=== PATIENT | female | born 1945 | race Caucasian/White ===

== ENCOUNTER → 2016-09-08 | Outpatient (CLI) | payer MEDICARE, BC ==
[~2016-09-08] MED LIST: ADULT LOW DOSE81 MG PO; ANUSOL HC CREAM30 GM TP; CALCIUM + D SO1 EACH PO; CITRACAL + D E1 EACH PO; ERGOCALCIFER50000 IU PO; FELDENE20 M1 PO; FISH OIL CONCEN1 SG2 PO; FLOVENT DI50 MCG/Act IH; FLUTICASON0.05 MG/AC NS; FOSAMAX 70MG TA70 MG PO; NORCO 325 MG-7.1 TA1 PO; NORVASC10 M1 PO; PHARMASSURE FO0.4 MG PO; PREMARIN 0.3MG0.3 MG PO; PROBIOTIC1 EAC1 PO; PROTONIX 40MG T40 MG PO; VOLTAREN-XR100 M1 PO
== END ==
LOC: LAB 09:07
DX: E11.9 Type 2 diabetes mellitus without complications (principal); E78.2 Mixed hyperlipidemia; I10 Essential (primary) hypertension

== ENCOUNTER → 2016-10-31 | Outpatient (CLI) | payer MEDICARE, BC ==
[2016-10-31 14:00] VITALS: BP 126/76
== END ==
LOC: AMSURD 13:32
DX: Z01.818 Encounter for other preprocedural examination (principal); M48.06 Spinal stenosis, lumbar region; Z51.81 Encounter for therapeutic drug level monitoring

== ENCOUNTER → 2017-03-08 | Outpatient (CLI) | payer MEDICARE, BC ==
[2016-10-31 14:00] VITALS: BP 126/76
== END ==
LOC: LAB 08:34
DX: I10 Essential (primary) hypertension (principal); E78.5 Hyperlipidemia, unspecified; E11.9 Type 2 diabetes mellitus without complications; Z12.11 Encounter for screening for malignant neoplasm of colon; M85.89 Other specified disorders of bone density and structure, multiple sites

== ENCOUNTER → 2017-03-13 | Outpatient (CLI) | payer MEDICARE, BC ==
[2016-10-31 14:00] VITALS: BP 126/76
== END ==
LOC: LAB 08:35
DX: E11.9 Type 2 diabetes mellitus without complications (principal); Z12.11 Encounter for screening for malignant neoplasm of colon; M25.552 Pain in left hip

== ENCOUNTER → 2017-03-15 | Outpatient (CLI) | payer MEDICARE, BC ==
[2016-10-31 14:00] VITALS: BP 126/76
== END ==
LOC: RAD 06:47
DX: M70.62 Trochanteric bursitis, left hip (principal)

== ENCOUNTER → 2017-03-23 | Outpatient (CLI) | payer MEDICARE, BC ==
[2016-10-31 14:00] VITALS: BP 126/76
== END ==
LOC: MAMMO 08:09 → LAB 13:53 → MAMMO 13:55
DX: Z12.31 Encounter for screening mammogram for malignant neoplasm of breast (principal)
CPT/HCPCS: G0202

== ENCOUNTER → 2017-04-20 | Outpatient (CLI) | payer MEDICARE, BC ==
[2016-10-31 14:00] VITALS: BP 126/76
[2017-04-20 17:22] LABS: D-DIMER 0.26 mg/L FEU (0.15-0.50)
== END ==
LOC: LAB 16:34
PROVIDERS: Physician Assistant
DX: M79.662 Pain in left lower leg (principal)

== ENCOUNTER → 2017-05-29 | Outpatient (CLI) | payer MEDICARE, BC ==
[2016-10-31 14:00] VITALS: BP 126/76
== END ==
LOC: RAD 03-13 10:17
DX: M54.5 Low back pain (principal); Z13.89 Encounter for screening for other disorder; M51.26 Other intervertebral disc displacement, lumbar region; M51.27 Other intervertebral disc displacement, lumbosacral region; G96.19 Other disorders of meninges, not elsewhere classified
CPT/HCPCS: A9585

== ENCOUNTER → 2017-09-04 | Outpatient (CLI) | payer MEDICARE, BC ==
[2016-10-31 14:00] VITALS: BP 126/76
[2017-09-04 09:16] LABS: EOS # 0.1 (0.04-0.40); EOS % 1.3 % (1.0-5.0); HEMATOCRIT 45.7 % (37.0-47.0); MEAN CELL VOLUME 91 fl (78-100); MEAN CORPUSCULAR HEMOGLOBIN 30 pg (27-31); MEAN CORPUSCULAR HGB CONC 33 g/dL (33-37); MONO # 0.4 (0.20-0.80); NEU # 2.1 (1.40-6.50); PLATELET COUNT 279 K/mm3 (130-400); RED BLOOD COUNT 5.02 M/mm3 (4.10-5.30); RED CELL DISTRIBUTION WIDTH 13.4 % (11.5-14.5); WHITE BLOOD COUNT 4.6 K/mm3 (4.8-10.8)
[2017-09-04 09:33] LABS: ALBUMIN 4.1 g/dL (3.5-5.0); BUN/CREATININE RATIO 17.9 (6.0-26.0); CALCIUM 9.8 mg/dL (8.4-10.2); TOTAL BILIRUBIN 0.6 mg/dL (0.2-1.3); TOTAL PROTEIN 7.5 g/dL (6.3-8.2)
== END ==
LOC: LAB 09:05
PROVIDERS: Internal Medicine
DX: E11.9 Type 2 diabetes mellitus without complications (principal); E78.2 Mixed hyperlipidemia; I10 Essential (primary) hypertension

== ENCOUNTER → 2017-09-26 | Outpatient (CLI) | payer MEDICARE, BC ==
[2016-10-31 14:00] VITALS: BP 126/76
[2017-09-26 08:54] LABS: BUN/CREATININE RATIO 19.4 (6.0-26.0)
== END ==
LOC: RAD 08:01
PROVIDERS: Internal Medicine
DX: R22.42 Localized swelling, mass and lump, left lower limb (principal); M19.90 Unspecified osteoarthritis, unspecified site

== ENCOUNTER → 2018-03-12 | Outpatient (CLI) | payer MEDICARE, BC ==
[2016-10-31 14:00] VITALS: BP 126/76
== END ==
LOC: LAB 09:15
DX: Z12.11 Encounter for screening for malignant neoplasm of colon (principal); E11.9 Type 2 diabetes mellitus without complications; I10 Essential (primary) hypertension; M25.562 Pain in left knee; K90.9 Intestinal malabsorption, unspecified

== ENCOUNTER → 2018-03-15 | Outpatient (CLI) | payer MEDICARE, BC ==
[~2018-03-15] VITALS: Ht 162.6 cm; Wt 90.0 kg
[~2018-03-15] MED LIST changes: +ASPIR LOW81 MG PO
[2018-03-15 09:32] VITALS: BP 140/68
== END ==
LOC: AMSURD 09:07
DX: I49.3 Ventricular premature depolarization (principal)

== ENCOUNTER → 2018-03-27 | Outpatient (CLI) | payer MEDICARE, BC ==
[2018-03-15 09:32] VITALS: BP 140/68
== END ==
LOC: RAD 08:26 → MAMMO 08:30 → RAD 08:30
DX: Z13.820 Encounter for screening for osteoporosis (principal); M85.80 Other specified disorders of bone density and structure, unspecified site

== ENCOUNTER → 2018-03-27 | Outpatient (CLI) | payer MEDICARE, BC ==
[2018-03-15 09:32] VITALS: BP 140/68
== END ==
LOC: MAMMO 08:26
DX: Z12.31 Encounter for screening mammogram for malignant neoplasm of breast (principal)

== ENCOUNTER → 2018-09-06 | Outpatient (CLI) | payer MEDICARE, BC ==
[2018-03-15 09:32] VITALS: BP 140/68
[2018-09-06 09:42] LABS: EOS # 0.1 (0.04-0.40); EOS % 2.6 % (1.0-5.0); HEMATOCRIT 44.8 % (37.0-47.0); HEMOGLOBIN 14.8 g/dL (12.5-16.0); LYMPH# 2.2 (1.50-4.00); MEAN CELL VOLUME 92 fl (78-100); MEAN CORPUSCULAR HEMOGLOBIN 30 pg (27-31); MEAN CORPUSCULAR HGB CONC 33 g/dL (33-37); MONO # 0.4 (0.20-0.80); NEU # 1.9 (1.40-6.50); PLATELET COUNT 268 K/mm3 (130-400); RED BLOOD COUNT 4.87 M/mm3 (4.10-5.30); RED CELL DISTRIBUTION WIDTH 13.3 % (11.5-14.5); WHITE BLOOD COUNT 4.7 K/mm3 (4.8-10.8)
[2018-09-06 09:43] LABS: ALBUMIN 4.5 g/dL (3.5-5.0); TOTAL BILIRUBIN 0.7 mg/dL (0.2-1.3); TOTAL PROTEIN 7.6 g/dL (6.3-8.2)
== END ==
LOC: LAB 09:02
PROVIDERS: Internal Medicine
DX: E11.9 Type 2 diabetes mellitus without complications (principal); I10 Essential (primary) hypertension; K90.9 Intestinal malabsorption, unspecified; M25.562 Pain in left knee

== ENCOUNTER → 2018-09-17 | Outpatient (CLI) | payer MEDICARE, BC ==
[2018-03-15 09:32] VITALS: BP 140/68
== END ==
LOC: RAD 08:58
DX: M19.90 Unspecified osteoarthritis, unspecified site (principal); M85.80 Other specified disorders of bone density and structure, unspecified site; M25.562 Pain in left knee; M25.561 Pain in right knee

== ENCOUNTER → 2019-03-12 | Outpatient (CLI) | payer MEDICARE, BC ==
[2018-03-15 09:32] VITALS: BP 140/68
[2019-03-12 09:40] LABS: EOS # 0.2 (0.04-0.40); EOS % 2.9 % (1.0-5.0); HEMATOCRIT 44.1 % (37.0-47.0); HEMOGLOBIN 14.6 g/dL (12.5-16.0); LYMPH# 2.4 (1.50-4.00); MEAN CELL VOLUME 92 fl (78-100); MEAN CORPUSCULAR HEMOGLOBIN 31 pg (27-31); MEAN CORPUSCULAR HGB CONC 33 g/dL (33-37); MEAN PLATELET VOLUME 8.9 fl (7.4-10.4); MONO # 0.3 (0.20-0.80); NEU # 2.3 (1.40-6.50); PLATELET COUNT 267 K/mm3 (130-400); RED BLOOD COUNT 4.79 M/mm3 (4.10-5.30); RED CELL DISTRIBUTION WIDTH 13.3 % (11.5-14.5); WHITE BLOOD COUNT 5.2 K/mm3 (4.8-10.8)
[2019-03-12 09:43] LABS: ALBUMIN 4.1 g/dL (3.4-4.8)
[2019-03-12 09:44] LABS: CALCIUM 10.1 mg/dL (8.3-10.5)
[2019-03-12 09:45] LABS: TOTAL PROTEIN 7.4 g/dL (6.2-8.1)
[2019-03-12 09:46] LABS: PH-URINE 5.5 (5.0 - 8.0); URINE APPEARANCE CLEAR; URINE BILIRUBIN NEGATIVE (NEGATIVE); URINE BLOOD TRACE (NEGATIVE); URINE COLOR YELLOW; URINE GLUCOSE NEGATIVE (NEGATIVE); URINE KETONE NEGATIVE (NEGATIVE); URINE LEUKOCYTE ESTERASE NEGATIVE (NEGATIVE); URINE MUCUS PRESENT (NOT PRESENT); URINE NITRATE NEGATIVE (NEGATIVE); URINE PROTEIN(semi-quant) TRACE mg/dL (NEGATIVE); URINE UROBILINOGEN NORMAL (NORMAL)
[2019-03-12 10:41] LABS: ERYTHROCYTE SEDIMENTATION RATE 6 mm/hr (0-30)
== END ==
LOC: LAB 09:21
PROVIDERS: Internal Medicine
DX: Z12.11 Encounter for screening for malignant neoplasm of colon (principal); E11.9 Type 2 diabetes mellitus without complications; I10 Essential (primary) hypertension; K90.9 Intestinal malabsorption, unspecified; M25.562 Pain in left knee

== ENCOUNTER → 2019-03-18 | Outpatient (CLI) | payer MEDICARE, BC ==
[~2019-03-18] VITALS: Ht 162.6 cm; Wt 90.0 kg
[~2019-03-18] MED LIST changes: +MELOXICAM15 MG PO; +PROAIR HFA0.09 MG/AC IH; +TOPICORT60 G2 TP
[2019-03-18 10:14] VITALS: BP 137/81
== END ==
LOC: AMSURD 08:45 → LAB 08:45
DX: Z12.11 Encounter for screening for malignant neoplasm of colon (principal); E11.9 Type 2 diabetes mellitus without complications; I49.3 Ventricular premature depolarization; I10 Essential (primary) hypertension; M25.562 Pain in left knee

== ENCOUNTER → 2019-04-04 | Outpatient (CLI) | payer MEDICARE, BC ==
[2019-03-18 10:14] VITALS: BP 137/81
== END ==
LOC: MAMMO 09:03
DX: Z12.31 Encounter for screening mammogram for malignant neoplasm of breast (principal)

== ENCOUNTER → 2019-12-23 | Outpatient (CLI) | payer MEDICARE, BC ==
[2019-03-18 10:14] VITALS: BP 137/81
== END ==
LOC: RAD 10:50
DX: M48.061 Spinal stenosis, lumbar region without neurogenic claudication (principal); M43.17 Spondylolisthesis, lumbosacral region; M54.16 Radiculopathy, lumbar region; Z98.890 Other specified postprocedural states

== ENCOUNTER → 2020-03-13 | Outpatient (CLI) | payer MEDICARE, BC ==
[2019-03-18 10:14] VITALS: BP 137/81
[2020-03-13 10:17] LABS: BASO # 0.1 (0.02-0.10); EOS # 0.2 (0.04-0.40); EOS % 3.2 % (1.0-5.0); HEMATOCRIT 44.3 % (37.0-47.0); HEMOGLOBIN 14.6 g/dL (12.5-16.0); LYMPH# 1.9 (1.50-4.00); MEAN CELL VOLUME 92 fl (78-100); MEAN CORPUSCULAR HEMOGLOBIN 30 pg (27-31); MEAN CORPUSCULAR HGB CONC 33 g/dL (33-37); MEAN PLATELET VOLUME 8.7 fl (7.4-10.4); MONO # 0.4 (0.20-0.80); NEU # 2.3 (1.40-6.50); PLATELET COUNT 277 K/mm3 (130-400); RED BLOOD COUNT 4.84 M/mm3 (4.10-5.30); RED CELL DISTRIBUTION WIDTH 13.1 % (11.5-14.5); WHITE BLOOD COUNT 4.8 K/mm3 (4.8-10.8)
[2020-03-13 10:30] LABS: ALBUMIN 4.3 g/dL (3.4-4.8)
[2020-03-13 10:31] LABS: CALCIUM 9.9 mg/dL (8.3-10.5)
[2020-03-13 10:33] LABS: TOTAL PROTEIN 7.4 g/dL (6.2-8.1)
[2020-03-13 10:35] LABS: TOTAL BILIRUBIN 0.6 mg/dL (0.2-1.2)
[2020-03-13 11:24] LABS: ERYTHROCYTE SEDIMENTATION RATE 3 mm/hr (0-30)
[2020-03-13 11:37] LABS: URINE APPEARANCE CLEAR; URINE BILIRUBIN NEGATIVE (NEGATIVE); URINE BLOOD NEGATIVE (NEGATIVE); URINE COLOR YELLOW; URINE GLUCOSE NEGATIVE (NEGATIVE); URINE KETONE NEGATIVE (NEGATIVE); URINE LEUKOCYTE ESTERASE NEGATIVE (NEGATIVE); URINE NITRATE NEGATIVE (NEGATIVE); URINE PROTEIN(semi-quant) TRACE mg/dL (NEGATIVE); URINE UROBILINOGEN NORMAL (NORMAL); URINE WBC 0-1 /hpf (0-3)
[2020-03-13 11:38] LABS: URINE MUCUS PRESENT (NOT PRESENT)
== END ==
LOC: LAB 10:03
PROVIDERS: Internal Medicine
DX: Z12.11 Encounter for screening for malignant neoplasm of colon (principal); E11.9 Type 2 diabetes mellitus without complications; K90.9 Intestinal malabsorption, unspecified; I10 Essential (primary) hypertension; M25.562 Pain in left knee

== ENCOUNTER → 2020-03-20 | Outpatient (CLI) | payer MEDICARE, BC ==
[2019-03-18 10:14] VITALS: BP 137/81
== END ==
LOC: LAB 11:06
DX: Z12.11 Encounter for screening for malignant neoplasm of colon (principal); E11.9 Type 2 diabetes mellitus without complications; I10 Essential (primary) hypertension; M25.562 Pain in left knee

== ENCOUNTER → 2020-03-23 | Outpatient (CLI) | payer MEDICARE, BC ==
[2019-03-18 10:14] VITALS: BP 137/81
== END ==
LOC: LAB 09:55
DX: I10 Essential (primary) hypertension (principal); R20.2 Paresthesia of skin

== ENCOUNTER → 2020-04-08 | Outpatient (CLI) | payer MEDICARE, BC ==
[2019-03-18 10:14] VITALS: BP 137/81
== END ==
LOC: MAMMO 04-07 10:00 → RAD 09:49 → MAMMO 10:00
DX: Z13.820 Encounter for screening for osteoporosis (principal); M85.89 Other specified disorders of bone density and structure, multiple sites
CPT/HCPCS: G0399

== ENCOUNTER → 2020-04-08 | Outpatient (CLI) | payer MEDICARE, BC ==
[2019-03-18 10:14] VITALS: BP 137/81
== END ==
LOC: MAMMO 09:49 → RAD 09:49 → MAMMO 10:45
DX: Z12.31 Encounter for screening mammogram for malignant neoplasm of breast (principal)

== ENCOUNTER → 2020-04-24 | Outpatient (CLI) | payer MEDICARE, BC ==
[2019-03-18 10:14] VITALS: BP 137/81
[2020-04-24 11:19] LABS: ALBUMIN 4.2 g/dL (3.4-4.8)
[2020-04-24 11:22] LABS: TOTAL PROTEIN 7.6 g/dL (6.2-8.1)
[2020-04-24 11:24] LABS: TOTAL BILIRUBIN 0.6 mg/dL (0.2-1.2)
[2020-04-24 11:27] LABS: DIRECT BILIRUBIN 0.2 mg/dL (0.0-0.5)
== END ==
LOC: LAB 10:45
PROVIDERS: Internal Medicine
DX: I10 Essential (primary) hypertension (principal); B35.1 Tinea unguium

== ENCOUNTER → 2020-05-07 | Outpatient (CLI) | payer MEDICARE, BC ==
[2019-03-18 10:14] VITALS: BP 137/81
== END ==
LOC: LAB 09:18
DX: J02.9 Acute pharyngitis, unspecified (principal); R09.81 Nasal congestion; Z20.828 Contact with and (suspected) exposure to other viral communicable diseases

== ENCOUNTER → 2020-05-29 | Outpatient (CLI) | payer MEDICARE, BC ==
[2019-03-18 10:14] VITALS: BP 137/81
[2020-05-29 13:37] LABS: ALBUMIN 4.4 g/dL (3.4-4.8)
[2020-05-29 13:39] LABS: TOTAL PROTEIN 7.3 g/dL (6.2-8.1)
[2020-05-29 13:41] LABS: TOTAL BILIRUBIN 0.5 mg/dL (0.2-1.2)
[2020-05-29 13:45] LABS: DIRECT BILIRUBIN 0.2 mg/dL (0.0-0.5)
== END ==
LOC: LAB 13:11
PROVIDERS: Internal Medicine
DX: B35.1 Tinea unguium (principal)

== ENCOUNTER → 2020-08-04 | Outpatient (CLI) | payer MEDICARE, BC ==
[2019-03-18 10:14] VITALS: BP 137/81
== END ==
LOC: RAD 10:06
DX: M25.561 Pain in right knee (principal)

== ENCOUNTER → 2020-09-08 | Outpatient (CLI) | payer MEDICARE, BC ==
[2019-03-18 10:14] VITALS: BP 137/81
[~2020-09-08] MED LIST changes: +VITAMIN D21250 MCG PO
[2020-09-08 10:00] LABS: ALBUMIN 4.2 g/dL (3.4-4.8)
[2020-09-08 10:03] LABS: TOTAL PROTEIN 7.1 g/dL (6.2-8.1)
[2020-09-08 10:05] LABS: TOTAL BILIRUBIN 0.6 mg/dL (0.2-1.2)
[2020-09-08 10:08] LABS: DIRECT BILIRUBIN 0.2 mg/dL (0.0-0.5)
== END ==
LOC: LAB 09:35
PROVIDERS: Internal Medicine
DX: E11.9 Type 2 diabetes mellitus without complications (principal); B35.1 Tinea unguium

== ENCOUNTER 2021-02-10 17:20 | Emergency (ER) | payer MEDICARE, BC ==
[~2021-02-10] VITALS: Ht 162.6 cm; Wt 91.8 kg
[~2021-02-10 17:20] MED LIST changes: -VITAMIN D21250 MCG PO
[2021-02-10 18:14] LABS: BASO # 0.02 (0.02-0.10); EOS # 0.06 (0.04-0.40); EOS % 0.9 % (1.0-5.0); HEMATOCRIT 44.3 % (37.0-47.0); HEMOGLOBIN 14.6 g/dL (12.5-16.0); LYMPH# 1.31 (1.50-4.00); MEAN CELL VOLUME 94 fl (78-100); MEAN CORPUSCULAR HEMOGLOBIN 31 pg (27-31); MEAN CORPUSCULAR HGB CONC 33 g/dL (33-37); MEAN PLATELET VOLUME 8.8 fl (7.4-10.4); MONO # 0.76 (0.20-0.80); NEU # 4.51 (1.40-6.50); PLATELET COUNT 180 K/mm3 (130-400); RED BLOOD COUNT 4.74 M/mm3 (4.10-5.30); WHITE BLOOD COUNT 6.7 K/mm3 (4.8-10.8)
[2021-02-10 18:26] LABS: ALBUMIN 4.1 g/dL (3.4-4.8); SODIUM 139 mmol/L (136-145)
[2021-02-10 18:27] LABS: CALCIUM 10.1 mg/dL (8.3-10.5)
[2021-02-10 18:28] LABS: GLUCOSE 118 mg/dL (65-105); TOTAL PROTEIN 7.6 g/dL (6.2-8.1)
[2021-02-10 18:30] LABS: CARBON DIOXIDE 23 mmol/L (23-31); TOTAL BILIRUBIN 1.1 mg/dL (0.2-1.2)
[2021-02-10 18:31] LABS: D-DIMER 0.2 mg/L FEU (0.15-0.50)
[2021-02-10 18:34] LABS: AST-SGOT 42 U/L (5-34)
[2021-02-10 18:35] LABS: ALT/SGPT 54 U/L (0-55)
[2021-02-10 19:09] LABS: TROPONIN-I < 0.03 ng/mL (<0.030)
[2021-02-10 21:06] VITALS: BP 131/63
[2021-02-10] MEDS ORDERED: VITAMIN D21250 MCG PO (21:18)
== END 2021-02-10 21:06 | disposition other institution (70) ==
LOC: ED 17:20
PROVIDERS: Physician Assistant
DX: U07.1 COVID-19 (principal); J12.82 Pneumonia due to coronavirus disease 2019; R09.02 Hypoxemia; E11.9 Type 2 diabetes mellitus without complications; I10 Essential (primary) hypertension; G47.33 Obstructive sleep apnea (adult) (pediatric); E78.2 Mixed hyperlipidemia; E66.9 Obesity, unspecified; Z79.899 Other long term (current) drug therapy
CPT/HCPCS: J0456; J0696; J1100; J7050

== ENCOUNTER 2021-02-10 20:10 | Inpatient (IN) | payer MEDICARE, BC ==
[~2021-02-10] VITALS: Ht 162.5 cm; Wt 91.8 kg
[2021-02-10] MEDS ORDERED: VITAMIN D21250 MCG PO (21:18)
[2021-02-10 22:00] VITALS: BP 131/63
[2021-02-10 22:03] VITALS: BP 131/63
[2021-02-11 02:07] VITALS: BP 119/59
[2021-02-11 05:38] VITALS: BP 110/59
[2021-02-11 06:48] LABS: URINE APPEARANCE CLEAR; URINE BILIRUBIN NEGATIVE (NEGATIVE); URINE BLOOD NEGATIVE (NEGATIVE); URINE COLOR YELLOW; URINE GLUCOSE 50 mg/dL mg/dL (NEGATIVE); URINE KETONE NEGATIVE (NEGATIVE); URINE LEUKOCYTE ESTERASE NEGATIVE (NEGATIVE); URINE NITRATE NEGATIVE (NEGATIVE); URINE PROTEIN(semi-quant) NEGATIVE (NEGATIVE); URINE UROBILINOGEN NORMAL (NORMAL); URINE WBC 0-1 /hpf (0-3)
[2021-02-11 07:11] LABS: BASO # 0.01 (0.02-0.10); HEMOGLOBIN 14.2 g/dL (12.5-16.0); LYMPH# 0.92 (1.50-4.00); MEAN CELL VOLUME 94 fl (78-100); MEAN CORPUSCULAR HEMOGLOBIN 30 pg (27-31); MEAN CORPUSCULAR HGB CONC 32 g/dL (33-37); MEAN PLATELET VOLUME 8.8 fl (7.4-10.4); MONO # 0.29 (0.20-0.80); NEU # 4.23 (1.40-6.50); PLATELET COUNT 187 K/mm3 (130-400); RED BLOOD COUNT 4.68 M/mm3 (4.10-5.30); RED CELL DISTRIBUTION WIDTH 12.8 % (11.5-14.5); WHITE BLOOD COUNT 5.5 K/mm3 (4.8-10.8)
[2021-02-11 07:16] LABS: ALBUMIN 3.8 g/dL (3.4-4.8); POTASSIUM 4.5 mmol/L (3.5-5.1)
[2021-02-11 07:17] LABS: CALCIUM 9.7 mg/dL (8.3-10.5)
[2021-02-11 07:19] LABS: TOTAL PROTEIN 7.1 g/dL (6.2-8.1)
[2021-02-11 07:21] LABS: TOTAL BILIRUBIN 0.6 mg/dL (0.2-1.2)
[2021-02-11 09:21] VITALS: BP 134/61
[2021-02-11 14:10] VITALS: BP 134/61
== END 2021-02-11 14:10 | disposition short-term general hospital (02) | DRG 177 ==
LOC: MED/SURG 20:10
PROVIDERS: ADMIT Physician Assistant
DX: U07.1 COVID-19 (principal); J12.82 Pneumonia due to coronavirus disease 2019; E11.9 Type 2 diabetes mellitus without complications; G47.33 Obstructive sleep apnea (adult) (pediatric); R09.02 Hypoxemia; M48.061 Spinal stenosis, lumbar region without neurogenic claudication; M85.80 Other specified disorders of bone density and structure, unspecified site; I10 Essential (primary) hypertension; E78.2 Mixed hyperlipidemia; Z88.8 Allergy status to other drugs, medicaments and biological substances
CPT/HCPCS: J1100; J1650

== ENCOUNTER → 2021-03-22 | Outpatient (CLI) | payer MEDICARE, BC ==
[~2021-03-22] MED LIST changes: +VITAMIN D21250 MCG PO
[2021-03-22 08:22] LABS: BASO # 0.03 (0.02-0.10); EOS # 0.04 (0.04-0.40); EOS % 0.8 % (1.0-5.0); HEMATOCRIT 41.4 % (37.0-47.0); HEMOGLOBIN 13.7 g/dL (12.5-16.0); LYMPH# 2.26 (1.50-4.00); MEAN CELL VOLUME 93 fl (78-100); MEAN CORPUSCULAR HEMOGLOBIN 31 pg (27-31); MEAN CORPUSCULAR HGB CONC 33 g/dL (33-37); MEAN PLATELET VOLUME 8.7 fl (7.4-10.4); MONO # 0.47 (0.20-0.80); NEU # 2.01 (1.40-6.50); PLATELET COUNT 223 K/mm3 (130-400); RED BLOOD COUNT 4.45 M/mm3 (4.10-5.30); RED CELL DISTRIBUTION WIDTH 13.4 % (11.5-14.5); WHITE BLOOD COUNT 4.8 K/mm3 (4.8-10.8)
[2021-03-22 09:29] LABS: ERYTHROCYTE SEDIMENTATION RATE 6 mm/hr (0-30)
[2021-03-22 09:37] LABS: POTASSIUM 4.3 mmol/L (3.5-5.1)
[2021-03-22 09:38] LABS: ALBUMIN 3.6 g/dL (3.4-4.8); CALCIUM 9.7 mg/dL (8.3-10.5)
[2021-03-22 09:42] LABS: TOTAL BILIRUBIN 0.6 mg/dL (0.2-1.2)
[2021-03-22 09:47] LABS: MAGNESIUM 1.93 mg/dL (1.60-2.60)
[2021-03-22 10:01] LABS: URINE APPEARANCE CLEAR; URINE BILIRUBIN NEGATIVE (NEGATIVE); URINE BLOOD NEGATIVE (NEGATIVE); URINE COLOR YELLOW; URINE GLUCOSE NEGATIVE (NEGATIVE); URINE KETONE NEGATIVE (NEGATIVE); URINE LEUKOCYTE ESTERASE NEGATIVE (NEGATIVE); URINE MUCUS PRESENT (NOT PRESENT); URINE NITRATE NEGATIVE (NEGATIVE); URINE PROTEIN(semi-quant) NEGATIVE (NEGATIVE); URINE UROBILINOGEN NORMAL (NORMAL); URINE WBC 0-1 /hpf (0-3)
[2021-03-22 23:40] LABS: CREATININE OTHER SOURCE 37 mg/dL (())
== END ==
LOC: LAB 08:02
PROVIDERS: Internal Medicine
DX: E11.9 Type 2 diabetes mellitus without complications (principal); I10 Essential (primary) hypertension; E78.2 Mixed hyperlipidemia; K90.9 Intestinal malabsorption, unspecified

== ENCOUNTER → 2021-04-21 | Outpatient (CLI) | payer MEDICARE, BC | LOC: MAMMO 11:33 | DX: Z12.31 Encounter for screening mammogram for malignant neoplasm of breast (principal) ==

== ENCOUNTER → 2021-04-21 | Outpatient (CLI) | payer MEDICARE, BC ==
[2021-04-21 13:16] LABS: POTASSIUM 4.3 mmol/L (3.5-5.1)
[2021-04-21 13:17] LABS: CALCIUM 10.3 mg/dL (8.3-10.5)
[2021-04-21 13:18] LABS: TOTAL PROTEIN 7.4 g/dL (6.2-8.1)
[2021-04-21 13:20] LABS: TOTAL BILIRUBIN 0.7 mg/dL (0.2-1.2)
== END ==
LOC: LAB 11:35
PROVIDERS: Internal Medicine
DX: E78.2 Mixed hyperlipidemia (principal)

== ENCOUNTER → 2021-05-24 | Outpatient (CLI) | payer MEDICARE, BC ==
[2021-05-24 12:04] LABS: ALBUMIN 4.1 g/dL (3.4-4.8)
[2021-05-24 12:06] LABS: CALCIUM 10.1 mg/dL (8.3-10.5)
[2021-05-24 12:07] LABS: TOTAL PROTEIN 7.5 g/dL (6.2-8.1)
[2021-05-24 12:09] LABS: TOTAL BILIRUBIN 0.6 mg/dL (0.2-1.2)
== END ==
LOC: LAB 11:41
PROVIDERS: Internal Medicine
DX: E78.2 Mixed hyperlipidemia (principal)

== ENCOUNTER → 2021-06-23 | Outpatient (CLI) | payer MEDICARE, BC | LOC: LAB 08:21 | DX: E11.9 Type 2 diabetes mellitus without complications (principal) ==

== ENCOUNTER → 2021-10-07 | Outpatient (CLI) | payer MEDICARE, BC ==
[2021-10-07 09:12] LABS: ALBUMIN 4.1 g/dL (3.4-4.8); POTASSIUM 4.9 mmol/L (3.5-5.1)
[2021-10-07 09:13] LABS: CALCIUM 10.4 mg/dL (8.3-10.5)
[2021-10-07 09:17] LABS: TOTAL BILIRUBIN 1.6 mg/dL (0.2-1.2)
== END ==
LOC: LAB 08:26
PROVIDERS: Internal Medicine
DX: E11.9 Type 2 diabetes mellitus without complications (principal); E78.2 Mixed hyperlipidemia; E53.8 Deficiency of other specified B group vitamins

== ENCOUNTER → 2021-12-02 | Outpatient (CLI) | payer MEDICARE, BC ==
[2021-12-02 09:30] LABS: BASO # 0.03 K/mm3 (0.02-0.10); EOS # 0.12 K/mm3 (0.04-0.40); EOS % 2.2 % (1.0-5.0); HEMATOCRIT 43.3 % (37.0-47.0); HEMOGLOBIN 14.1 g/dL (12.5-16.0); MEAN CELL VOLUME 92 fl (78-100); MEAN CORPUSCULAR HEMOGLOBIN 30 pg (27-31); MEAN CORPUSCULAR HGB CONC 33 g/dL (33-37); MEAN PLATELET VOLUME 8.9 fl (7.4-10.4); MONO # 0.36 K/mm3 (0.20-0.80); NEU # 2.66 K/mm3 (1.40-6.50); PLATELET COUNT 212 K/mm3 (130-400); RED BLOOD COUNT 4.69 M/mm3 (4.10-5.30); RED CELL DISTRIBUTION WIDTH 12.9 % (11.5-14.5); WHITE BLOOD COUNT 5.4 K/mm3 (4.8-10.8)
[2021-12-02 09:55] LABS: ALBUMIN 4.1 g/dL (3.4-4.8); POTASSIUM 4.3 mmol/L (3.5-5.1)
[2021-12-02 09:56] LABS: CALCIUM 10.1 mg/dL (8.3-10.5)
[2021-12-02 09:58] LABS: TOTAL PROTEIN 6.8 g/dL (6.2-8.1)
[2021-12-02 10:04] LABS: MAGNESIUM 2.04 mg/dL (1.60-2.60)
[2021-12-02 10:18] LABS: URINE APPEARANCE CLEAR; URINE BILIRUBIN NEGATIVE (NEGATIVE); URINE BLOOD TRACE (NEGATIVE); URINE COLOR LT YELLOW; URINE GLUCOSE NEGATIVE (NEGATIVE); URINE KETONE NEGATIVE (NEGATIVE); URINE LEUKOCYTE ESTERASE TRACE (NEGATIVE); URINE NITRATE NEGATIVE (NEGATIVE); URINE PROTEIN(semi-quant) NEGATIVE (NEGATIVE); URINE UROBILINOGEN NORMAL (NORMAL)
== END ==
LOC: LAB 09:03
PROVIDERS: Internal Medicine
DX: Z01.818 Encounter for other preprocedural examination (principal); E11.9 Type 2 diabetes mellitus without complications

== ENCOUNTER → 2022-01-31 | Outpatient (CLI) | payer MEDICARE, BC ==
[2022-01-31 14:46] LABS: BASO # 0.04 K/mm3 (0.02-0.10); EOS # 0.14 K/mm3 (0.04-0.40); EOS % 2.2 % (1.0-5.0); HEMATOCRIT 44.7 % (37.0-47.0); HEMOGLOBIN 14.4 g/dL (12.5-16.0); LYMPH# 2.67 K/mm3 (1.50-4.00); MEAN CELL VOLUME 93 fl (78-100); MEAN CORPUSCULAR HEMOGLOBIN 30 pg (27-31); MEAN CORPUSCULAR HGB CONC 32 g/dL (33-37); MEAN PLATELET VOLUME 8.9 fl (7.4-10.4); MONO # 0.42 K/mm3 (0.20-0.80); NEU # 3.14 K/mm3 (1.40-6.50); PLATELET COUNT 223 K/mm3 (130-400); RED BLOOD COUNT 4.81 M/mm3 (4.10-5.30); WHITE BLOOD COUNT 6.4 K/mm3 (4.8-10.8)
[2022-01-31 14:56] LABS: POTASSIUM 4.2 mmol/L (3.5-5.1)
[2022-01-31 14:57] LABS: ALBUMIN 4.3 g/dL (3.4-4.8)
[2022-01-31 14:58] LABS: CALCIUM 10.3 mg/dL (8.3-10.5)
[2022-01-31 15:00] LABS: TOTAL PROTEIN 7.3 g/dL (6.2-8.1)
[2022-01-31 15:01] LABS: TOTAL BILIRUBIN 0.9 mg/dL (0.2-1.2)
[2022-01-31 15:05] LABS: DIRECT BILIRUBIN 0.4 mg/dL (0.0-0.5)
[2022-01-31 15:07] LABS: MAGNESIUM 2.02 mg/dL (1.60-2.60)
[2022-01-31 15:24] LABS: PH-URINE 6.5 (5.0 - 8.0); URINE APPEARANCE CLEAR; URINE BILIRUBIN NEGATIVE (NEGATIVE); URINE BLOOD NEGATIVE (NEGATIVE); URINE COLOR YELLOW; URINE GLUCOSE NEGATIVE (NEGATIVE); URINE KETONE NEGATIVE (NEGATIVE); URINE LEUKOCYTE ESTERASE NEGATIVE (NEGATIVE); URINE MUCUS PRESENT (NOT PRESENT); URINE NITRATE NEGATIVE (NEGATIVE); URINE PROTEIN(semi-quant) NEGATIVE (NEGATIVE); URINE UROBILINOGEN NORMAL (NORMAL); URINE WBC 0-1 /hpf (0-3)
== END ==
LOC: RAD 14:24
PROVIDERS: Internal Medicine
DX: Z01.812 Encounter for preprocedural laboratory examination (principal); Z01.810 Encounter for preprocedural cardiovascular examination; R06.02 Shortness of breath

== ENCOUNTER → 2022-04-21 | Outpatient (CLI) | payer MEDICARE, BC | LOC: RAD 09:54 → MAMMO 10:45 | DX: Z12.31 Encounter for screening mammogram for malignant neoplasm of breast (principal); Z13.820 Encounter for screening for osteoporosis; M85.852 Other specified disorders of bone density and structure, left thigh ==

== ENCOUNTER → 2022-04-21 | Outpatient (CLI) | payer MEDICARE, BC | LOC: MAMMO 09:51 | DX: Z12.31 Encounter for screening mammogram for malignant neoplasm of breast (principal); M85.80 Other specified disorders of bone density and structure, unspecified site ==

== ENCOUNTER → 2022-05-04 | Outpatient (CLI) | payer MEDICARE, BC | LOC: RAD 13:00 | DX: J32.0 Chronic maxillary sinusitis (principal); J01.21 Acute recurrent ethmoidal sinusitis; J32.3 Chronic sphenoidal sinusitis ==

== ENCOUNTER → 2022-06-06 | Outpatient (CLI) | payer MEDICARE, BC ==
[2022-06-06 17:55] LABS: BASO # 0.04 K/mm3 (0.02-0.10); EOS # 0.23 K/mm3 (0.04-0.40); EOS % 3.1 % (1.0-5.0); HEMATOCRIT 45.2 % (37.0-47.0); HEMOGLOBIN 14.5 g/dL (12.5-16.0); LYMPH# 2.06 K/mm3 (1.50-4.00); MEAN CELL VOLUME 94 fl (78-100); MEAN CORPUSCULAR HEMOGLOBIN 30 pg (27-31); MEAN CORPUSCULAR HGB CONC 32 g/dL (33-37); MONO # 0.57 K/mm3 (0.20-0.80); NEU # 4.52 K/mm3 (1.40-6.50); PLATELET COUNT 454 K/mm3 (130-400); RED BLOOD COUNT 4.82 M/mm3 (4.10-5.30); RED CELL DISTRIBUTION WIDTH 13.7 % (11.5-14.5); WHITE BLOOD COUNT 7.4 K/mm3 (4.8-10.8)
[2022-06-06 18:03] LABS: ALBUMIN 4.4 g/dL (3.4-4.8)
[2022-06-06 18:04] LABS: CALCIUM 10.3 mg/dL (8.3-10.5)
[2022-06-06 18:06] LABS: TOTAL PROTEIN 7.4 g/dL (6.2-8.1)
[2022-06-06 18:07] LABS: TOTAL BILIRUBIN 0.8 mg/dL (0.2-1.2)
== END ==
LOC: LAB 16:57
PROVIDERS: Internal Medicine
DX: U07.1 COVID-19 (principal); J01.90 Acute sinusitis, unspecified

== ENCOUNTER → 2023-04-04 | Outpatient (CLI) | payer MEDICARE, BC ==
[2023-04-04 09:35] LABS: BASO # 0.03 K/mm3 (0.02-0.10); EOS # 0.14 K/mm3 (0.04-0.40); EOS % 2.6 % (1.0-5.0); HEMATOCRIT 43.5 % (37.0-47.0); HEMOGLOBIN 14.1 g/dL (12.5-16.0); LYMPH# 2.21 K/mm3 (1.50-4.00); MEAN CELL VOLUME 94 fl (78-100); MEAN CORPUSCULAR HEMOGLOBIN 30 pg (27-31); MEAN CORPUSCULAR HGB CONC 32 g/dL (33-37); NEU # 2.53 K/mm3 (1.40-6.50); PLATELET COUNT 187 K/mm3 (130-400); RED BLOOD COUNT 4.65 M/mm3 (4.10-5.30); WHITE BLOOD COUNT 5.3 K/mm3 (4.8-10.8)
[2023-04-04 09:50] LABS: ALBUMIN 4.2 g/dL (3.4-4.8)
[2023-04-04 09:51] LABS: CALCIUM 9.9 mg/dL (8.3-10.5)
[2023-04-04 09:54] LABS: TOTAL BILIRUBIN 0.7 mg/dL (0.2-1.2)
[2023-04-04 09:59] LABS: MAGNESIUM 2.13 mg/dL (1.60-2.60)
[2023-04-04 11:27] LABS: ERYTHROCYTE SEDIMENTATION RATE 5 mm/hr (0-30)
[2023-04-04 13:31] LABS: URINE APPEARANCE HAZY; URINE COLOR YELLOW; URINE PROTEIN(semi-quant) TRACE (NEGATIVE)
[2023-04-04 13:32] LABS: URINE BILIRUBIN NEGATIVE (NEGATIVE); URINE BLOOD TRACE (NEGATIVE); URINE GLUCOSE NEGATIVE (NEGATIVE); URINE KETONE NEGATIVE (NEGATIVE); URINE LEUKOCYTE ESTERASE TRACE (NEGATIVE); URINE MUCUS PRESENT (NOT PRESENT); URINE NITRATE NEGATIVE (NEGATIVE); URINE UROBILINOGEN NORMAL (NORMAL)
== END ==
LOC: LAB 09:12
PROVIDERS: Internal Medicine
DX: Z12.11 Encounter for screening for malignant neoplasm of colon (principal); M85.80 Other specified disorders of bone density and structure, unspecified site; E11.9 Type 2 diabetes mellitus without complications; I10 Essential (primary) hypertension; E78.2 Mixed hyperlipidemia

== ENCOUNTER → 2023-04-12 | Outpatient (CLI) | payer MEDICARE, BC | LOC: LAB 11:26 | DX: Z12.11 Encounter for screening for malignant neoplasm of colon (principal); E11.9 Type 2 diabetes mellitus without complications; I10 Essential (primary) hypertension; E78.2 Mixed hyperlipidemia; M85.80 Other specified disorders of bone density and structure, unspecified site ==

== ENCOUNTER → 2023-04-24 | Outpatient (CLI) | payer MEDICARE, BC | LOC: MAMMO 10:53 | DX: Z12.31 Encounter for screening mammogram for malignant neoplasm of breast (principal) ==

== ENCOUNTER → 2023-08-04 | Outpatient (CLI) | payer MEDICARE, BC | LOC: LAB 08:47 | DX: E11.9 Type 2 diabetes mellitus without complications (principal) ==

== ENCOUNTER → 2023-11-15 | Outpatient (CLI) | payer MEDICARE, BC ==
[2024-01-07 11:21] LABS: ALBUMIN 4.3 g/dL (3.4-4.8); CALCIUM 10.7 mg/dL (8.3-10.5); MAGNESIUM 1.89 mg/dL (1.60-2.60); TOTAL BILIRUBIN 0.7 mg/dL (0.2-1.2); TOTAL PROTEIN 7.1 g/dL (6.2-8.1)
[2024-01-07 11:25] LABS: BASO # 0.02 K/mm3 (0.02-0.10); EOS # 0.13 K/mm3 (0.04-0.40); EOS % 2.3 % (1.0-5.0); HEMATOCRIT 44.4 % (37.0-47.0); HEMOGLOBIN 14.5 g/dL (12.5-16.0); LYMPH# 2.43 K/mm3 (1.50-4.00); MEAN CELL VOLUME 92 fl (78-100); MEAN CORPUSCULAR HEMOGLOBIN 30 pg (27-31); MEAN CORPUSCULAR HGB CONC 33 g/dL (33-37); MEAN PLATELET VOLUME 8.9 fl (7.4-10.4); MONO # 0.41 K/mm3 (0.20-0.80); NEU # 2.77 K/mm3 (1.40-6.50); PLATELET COUNT 209 K/mm3 (130-400); RED BLOOD COUNT 4.82 M/mm3 (4.10-5.30); RED CELL DISTRIBUTION WIDTH 13.1 % (11.5-14.5); WHITE BLOOD COUNT 5.8 K/mm3 (4.8-10.8)
== END ==
LOC: LAB 08:00
PROVIDERS: Internal Medicine
DX: I10 Essential (primary) hypertension (principal); E78.2 Mixed hyperlipidemia; E11.9 Type 2 diabetes mellitus without complications

== ENCOUNTER → 2024-02-20 | Outpatient (CLI) | payer MEDICARE, BC | LOC: LAB 09:09 | DX: E11.9 Type 2 diabetes mellitus without complications (principal) ==

== ENCOUNTER → 2024-05-13 | Outpatient (CLI) | payer MEDICARE, BC | LOC: LAB 14:35 | DX: Z12.11 Encounter for screening for malignant neoplasm of colon (principal); I10 Essential (primary) hypertension; E78.2 Mixed hyperlipidemia; M85.80 Other specified disorders of bone density and structure, unspecified site; E11.9 Type 2 diabetes mellitus without complications ==

== ENCOUNTER → 2024-05-15 | Outpatient (CLI) | payer MEDICARE | LOC: MAMMO 08:30 | DX: Z12.31 Encounter for screening mammogram for malignant neoplasm of breast (principal) ==

== ENCOUNTER → 2024-07-18 | Outpatient (CLI) | payer MEDICARE, BC | LOC: RAD 09:35 → MAMMO 10:00 | DX: Z13.820 Encounter for screening for osteoporosis (principal) ==

== ENCOUNTER → 2024-08-12 | Outpatient (CLI) | payer MEDICARE, BC | LOC: LAB 09:04 | DX: M85.80 Other specified disorders of bone density and structure, unspecified site (principal); E11.9 Type 2 diabetes mellitus without complications ==

== ENCOUNTER → 2024-08-22 | Outpatient (CLI) | payer MEDICARE, BC ==
[~2024-08-22] VITALS: Ht 162.5 cm; Wt 91.8 kg
[~2024-08-22] MED LIST changes: +Denosumab 60 MG/ML SYRINGE SQ ONE; +GLUCOPHAGE PO; +ROSUVASTATIN CA10 MG PO; +VAZALORE81 MG PO; +VITAMIN B121000 MC3 PO
[2024-08-22 10:02] VITALS: BP 159/82
== END ==
LOC: AMSURD 09:52
DX: M85.80 Other specified disorders of bone density and structure, unspecified site (principal)
CPT/HCPCS: J0897

== ENCOUNTER → 2024-09-13 | Outpatient (CLI) | payer MEDICARE, BC ==
[~2024-09-13] MED LIST changes: -Denosumab 60 MG/ML SYRINGE SQ ONE
== END ==
LOC: RAD 08:45
DX: M19.072 Primary osteoarthritis, left ankle and foot (principal)